=== PATIENT | male | born 1945 | race African-American/Black ===

== ENCOUNTER 2019-07-25 09:25 | Emergency (ER) | payer MEDICARE ==
--- NOTE | 2019-07-25 10:26 | RAD ---
3 VIEWS LEFT HAND: Date: 07/25/2019 COMPARISON: None. HISTORY: Hand pain and swelling for 2 weeks. No history of injury. FINDINGS: There is degenerative change involving the first and second metacarpophalangeal joints, as well as th e distal radial ulnar joint and the first carpometacarpal joint. Scattered mild degenerative changes are noted involving the proximal and distal interphalangeal joints of the fingers. There is no displa annabella fracture or evidence of dislocation seen. There is vascular calcification anteriorly at the level of the wrist and distal forearm. Nonspecific mild dorsal soft tissue swelling is suspected overlying the hand at the level of the metacarpals. IMPRESSION: No acute osseous abnormality. Degenerative change and probable dorsal soft tissue swelling. POS: [facility]
== END 2019-07-25 10:12 | disposition home or self-care (01) ==
LOC: NAV ERS 09:25
DX: M79.89 Other specified soft tissue disorders (principal); I10 Essential (primary) hypertension; F17.210 Nicotine dependence, cigarettes, uncomplicated; Z79.84 Long term (current) use of oral hypoglycemic drugs; Z79.82 Long term (current) use of aspirin; Z79.899 Other long term (current) drug therapy